=== PATIENT | female | born 1980 | race Caucasian/White ===

== ENCOUNTER 2024-03-23 08:12 | Outpatient (CLI) | payer MEDICARE ==
[2024-03-23 11:46] LABS: #Basophils 0.05 10x3/uL (0.0-0.2); %Basophils 0.7 % (0.0-1.0); %Eosinophils 2.2 % (0.0-10.0); %Lymphocytes 32.2 % (21.0-51.0); %Monocytes 5.9 % (0.0-10.0); %Neutrophils 58.7 % (42.0-75.0); Hematocrit 38.7 % (36.0-47.0); Hemoglobin 13.4 g/dL (12.0-16.0); Mean Corpuscular HGB CONC 34.6 g/dL (32.0-36.0); Mean Corpuscular Hemoglobin 29.6 pg (27.0-31.0); Mean Corpuscular Volume 85.4 fL (78.0-98.0); Mean Platelet Volume 11.3 fL (7.4-10.4); Platelet Count 219 10x3/uL (130-400); RBC Distribution Width 12.5 % (11.5-14.5); Red Blood Cell (RBC) Count 4.53 mill/uL (4.20-5.40)
[2024-03-23 12:07] LABS: Anion Gap 14 mmol/L (10-20); BUN (Urea Nitrogen) 14 mg/dL (7.0-18.7); Calc. Creatinine Clearance 0 mL/min (70-130); Calcium 8.8 mg/dL (7.8-10.44); Carbon Dioxide 20 mmol/L (22-29); Chloride 108 mmol/L (98-107); Estimated GFR 109; Glucose 96 mg/dL (70-105); Sodium 138 mmol/L (136-145)
== END 2024-03-23 08:13 | disposition home or self-care (01) ==
LOC: LABBT 08:12
PROVIDERS: ATTEND Orthopaedic Surgery Hand Surgery
DX: Z01.818 Encounter for other preprocedural examination (principal); G56.03 Carpal tunnel syndrome, bilateral upper limbs
CPT/HCPCS: 80048; 85025; 93005; 93010

== ENCOUNTER 2024-03-25 12:04 | Day surgery (SDC) | payer MEDICARE ==
[2024-03-23 08:42] VITALS: BMI 37.8
[2024-03-25] MEDS ORDERED: Bupivacaine PF 0.5% 30 ML VIAL ONE (15:16)
[2024-03-25] MEDS ORDERED: Betamet Acet/Betamet Na Ph 30 MG/5 ML VIAL ONE (15:16)
[2024-03-25] MEDS ORDERED: Bacitracin Zinc Ointment 30 gm TUBE ONE (15:16)
[2024-03-25] MEDS ORDERED: PROPOFOL 20 ML ONE (15:30)
[2024-03-25] MEDS ORDERED: Midazolam HCl 2 mg/2 ml Vial ONE (15:31)
[2024-03-25] MEDS ORDERED: Ondansetron PF 4 MG/2 ML Vial ONE (15:32)
[2024-03-25] MEDS ORDERED: Lidocaine 1% PF 5 ML VIAL ONE (15:32)
[2024-03-25] MEDS ORDERED: CEFAZOLIN 2 GM VIAL ONE (15:34)
[2024-03-25] MEDS ORDERED: Ketorolac Tromethamine 30 MG (1 mL) VIAL ONE (17:01)
[2024-03-29] MEDS ORDERED: FLU (Fluad Triv) TS24-25 (65UP)/MF59C/PF 45 MCG/0.5 ML Syringe IM ONE (12:00)
== END 2024-03-25 17:53 | disposition home or self-care (01) ==
LOC: SDC 12:04
PROVIDERS: ATTEND Orthopaedic Surgery Hand Surgery
PROC: 01N50ZZ Release Median Nerve, Open Approach (ICD-10-PCS; principal; 2024-03-25)
DX: G56.03 Carpal tunnel syndrome, bilateral upper limbs (principal); G58.7 Mononeuritis multiplex; M48.02 Spinal stenosis, cervical region; M25.331 Other instability, right wrist; I10 Essential (primary) hypertension; F41.9 Anxiety disorder, unspecified; F32.A Depression, unspecified; Z90.710 Acquired absence of both cervix and uterus; Z90.49 Acquired absence of other specified parts of digestive tract; Z87.891 Personal history of nicotine dependence; Z88.8 Allergy status to other drugs, medicaments and biological substances; Z79.899 Other long term (current) drug therapy
CPT/HCPCS: 64721; A6223; J0665; J1885; J2250; J2405; J2704; J0702